=== PATIENT | female | born 1965 | race Caucasian/White ===

== ENCOUNTER 2017-01-02 05:30 | Day surgery (SDC) | payer OTHER ==
[~2017-01-02] VITALS: Ht 165.1 cm; Wt 97.5 kg
[2017-01-02 06:39] VITALS: O2SAT 96
[2017-01-02] MEDS ORDERED: LR 1,000 ML IV.SOLN IV ONE (07:26)
[2017-01-02] MEDS ORDERED: NS 1000 ML BAG IV ONE (07:26)
[2017-01-02] MEDS ORDERED: PROPOFOL 200MG/ 20ML VIAL (DIPRIVAN) IV ONE (07:26)
[2017-01-02] MEDS ORDERED: DEXAMETHASONE SOD PHOSPHATE 4 MG/ML VIAL IVP ONE (07:26)
[2017-01-02] MEDS ORDERED: METOCLOPRAMIDE HCL 10 MG/2 ML VIAL IVP ONE (07:26)
[2017-01-02] MEDS ORDERED: SEVOFLURANE 15 MIN GAS INH ONE (07:26)
[2017-01-02] MEDS ORDERED: KETOROLAC TROMETHAMINE 30 MG VIAL IVP ONE (07:26)
[2017-01-02] MEDS ORDERED: MIDAZOLAM HCL 5 MG/5 ML VIAL IVP ONE (07:26)
[2017-01-02] MEDS ORDERED: fentaNYL CITRATE/PF 100 MCG/2 ML AMP IVP ONE (07:26)
[2017-01-02] MEDS ORDERED: LR 1,000 ML IV ONE (08:16)
[2017-01-02] MEDS ORDERED: ONDANSETRON HCL 4 MG/2 ML VIAL IVP PRN ×3 (08:30)
[2017-01-02] MEDS ORDERED: IBUPROFEN 600 MG TABLET PO PRN (08:30)
[2017-01-02] MEDS ORDERED: DIPHENHYDRAMINE INJ 50 MG/ML VIAL IVP PRN (08:30)
[2017-01-02] MEDS ORDERED: ePHEDrine sulfate 50 MG/ML VIAL IVP PRN (08:30)
[2017-01-02] MEDS ORDERED: NALOXONE HCL 0.4 MG/ML AMP (NARCAN) IVP PRN (08:30)
[2017-01-02] MEDS ORDERED: fentaNYL CITRATE/PF 100 MCG/2 ML AMP IVP PRN (08:30)
[2017-01-02] MEDS ORDERED: PROMETHAZINE HCL 25 MG/ML AMP IM PRN ×2 (08:30)
[2017-01-02] MEDS ORDERED: OXYCODONE/ACETAMINOPHEN 5-325 TABLET PO PRN ×2 (08:30)
[2017-01-02] MEDS ORDERED: NALBUPHINE HCL 10 MG/ML AMP IVP PRN (08:30)
[2017-01-02] MEDS ORDERED: fentaNYL CITRATE/PF 100 MCG/2 ML AMP ONE (08:55)
[2017-01-02 09:38] VITALS: BP 147/92; PULSE 55; RESP 16
[2017-01-02] MEDS ORDERED: OXYCODONE/ACETAMINOPHEN 5-325 TABLET ONE (09:53)
[2017-01-02] MEDS ORDERED: ONDANSETRON HCL 4 MG/2 ML VIAL ONE (10:23)
== END 2017-01-02 10:50 | disposition home or self-care (01) ==
LOC: SDS 05:30 → SMU 05:30 → SDS 10:50
PROVIDERS: ATTEND Obstetrics & Gynecology
DX: N85.8 Other specified noninflammatory disorders of uterus (principal); G44.209 Tension-type headache, unspecified, not intractable; Z90.49 Acquired absence of other specified parts of digestive tract; Z98.890 Other specified postprocedural states; Z80.0 Family history of malignant neoplasm of digestive organs; Z82.49 Family history of ischemic heart disease and other diseases of the circulatory system; Z83.3 Family history of diabetes mellitus; I10 Essential (primary) hypertension; J45.991 Cough variant asthma; F32.9 Major depressive disorder, single episode, unspecified; E78.1 Pure hyperglyceridemia; H26.9 Unspecified cataract; M54.16 Radiculopathy, lumbar region; E66.9 Obesity, unspecified; Z68.34 Body mass index [BMI] 34.0-34.9, adult; G89.29 Other chronic pain; I47.1 Supraventricular tachycardia
CPT/HCPCS: 36415; 58563; 86886; 86900; 86901; 88305; J1100; J1885; J2250; J2405; J2704; J2765; J3010; J7030; J7120